=== PATIENT | female | born 1985 | race Caucasian/White ===

== ENCOUNTER 2022-09-27 12:10 | Emergency (ER) | payer MEDICAID ==
[~2022-09-27] VITALS: Ht 175.3 cm; Wt 78.0 kg
[~2022-09-27 12:10] MED LIST: Acetaminophen PO; LINE600T12 PO; OMEP20CA15 PO; Oxycodone Hcl PO
--- NOTE | 2022-09-27 13:10 | NUR ---
PT IS IN ROOM #2A. DR MAIN EVALUATED THE PT.
[2022-09-27] MEDS ORDERED: MEROPENEM 1,000 MG in IV NORMAL SALINE 100 ML IV ONE (13:30)
[2022-09-27] MEDS ORDERED: MEROPENEM 1GM/NS 100ML IVPB **ER PYXIS ONLY IV ONE (14:03)
--- NOTE | 2022-09-27 15:17 | NUR ---
PT WAS D/C'd TO HOME D/C INSTRUCTIONS GIVEN TO THE PT BY DR MAIN.
[2022-09-27 15:18] VITALS: BP 141/68
== END 2022-09-27 15:19 | disposition home or self-care (01) ==
LOC: ER 12:10
DX: M46.32 Infection of intervertebral disc (pyogenic), cervical region (principal); J45.909 Unspecified asthma, uncomplicated; F17.210 Nicotine dependence, cigarettes, uncomplicated; Z79.899 Other long term (current) drug therapy
CPT/HCPCS: 99284; 96365; J2185; A4663

== ENCOUNTER 2022-09-29 18:02 | Emergency (ER) | payer MEDICAID ==
[~2022-09-29] VITALS: Ht 175.3 cm; Wt 78.0 kg
--- NOTE | 2022-09-29 18:10 | NUR ---
seen and examined by
[2022-09-29] MEDS ORDERED: MEROPENEM 1GM/NS 100ML IVPB **ER PYXIS ONLY IV ONE (18:28)
[2022-09-29] MEDS: MEROPENEM 1,000 MG in IV NORMAL SALINE 100 ML IV ONE (18:37)
--- NOTE | 2022-09-29 18:52 | NUR ---
Patient discharged to home in stable condition. Written and verbal after care instructions given. Patient verbalizes understanding of instructions. Stressed follow up or return to ER for worsening s/s.
[2022-09-29 18:55] VITALS: BP 122/78
== END 2022-09-29 18:56 | disposition home or self-care (01) ==
LOC: ER 18:02
DX: T81.49XA Infection following a procedure, other surgical site, initial encounter (principal); J45.909 Unspecified asthma, uncomplicated; F17.210 Nicotine dependence, cigarettes, uncomplicated; Z79.899 Other long term (current) drug therapy
CPT/HCPCS: 99283; 96374; J2185; A4663

== ENCOUNTER 2022-09-30 22:49 | Emergency (ER) | payer MEDICAID ==
[~2022-09-30] VITALS: Ht 175.3 cm; Wt 78.0 kg
--- NOTE | 2022-09-30 23:12 | NUR ---
Pt has RT upper midline where IV meds were administered.
[2022-09-30] MEDS ORDERED: MEROPENEM 1,000 MG in IV NORMAL SALINE 100 ML IV ONE (23:45)
[2022-09-30] MEDS ORDERED: MEROPENEM 1 G VIAL IV ONE (23:56)
--- NOTE | 2022-10-01 00:45 | NUR ---
Patient discharged to home in stable condition. Written and verbal after care instructions given. Patient verbalizes understanding of instructions. Stressed follow up or return to ER for worsening s/s. Patient walked out with steady gait.
[2022-10-01 01:46] VITALS: BP 110/58
== END 2022-10-01 01:20 | disposition home or self-care (01) ==
LOC: ER 22:49
DX: T81.40XA Infection following a procedure, unspecified, initial encounter (principal); J45.909 Unspecified asthma, uncomplicated; F17.210 Nicotine dependence, cigarettes, uncomplicated; Z79.899 Other long term (current) drug therapy
CPT/HCPCS: 99284; 96365; J2185; A4663

== ENCOUNTER 2022-10-02 00:20 | Emergency (ER) | payer MEDICAID ==
[~2022-10-02] VITALS: Ht 175.3 cm; Wt 78.0 kg
[2022-10-02] MEDS ORDERED: MEROPENEM 1,000 MG in IV NORMAL SALINE 100 ML IV ONE (00:45)
[2022-10-02] MEDS ORDERED: MEROPENEM 1GM/NS 100ML IVPB **ER PYXIS ONLY IV ONE (00:48)
[2022-10-02 01:23] VITALS: BP 115/65
== END 2022-10-02 01:23 | disposition home or self-care (01) ==
LOC: ER 00:25
DX: T81.40XA Infection following a procedure, unspecified, initial encounter (principal); J45.909 Unspecified asthma, uncomplicated; F17.210 Nicotine dependence, cigarettes, uncomplicated; Z79.899 Other long term (current) drug therapy
CPT/HCPCS: 99284; 96365; J2185; A4663

== ENCOUNTER 2022-10-04 01:33 | Emergency (ER) | payer MEDICAID ==
[~2022-10-04] VITALS: Ht 175.3 cm; Wt 78.5 kg
[2022-10-04] MEDS ORDERED: MEROPENEM 1GM/NS 100ML IVPB **ER PYXIS ONLY IV ONE (02:05)
[2022-10-04] MEDS: MEROPENEM 1,000 MG in IV NORMAL SALINE 100 ML IV ONE (02:11)
--- NOTE | 2022-10-04 02:58 | NUR ---
Patient discharged to home in stable condition. Written and verbal after care instructions given. Patient verbalizes understanding of instructions. Stressed follow up or return to ER for worsening s/s. Patient is a/ox4, NAD noted, patient ambulated with steady gait.
[2022-10-04 03:13] VITALS: BP 125/74
== END 2022-10-04 03:00 | disposition home or self-care (01) ==
LOC: ER 01:36
DX: T81.40XA Infection following a procedure, unspecified, initial encounter (principal); J45.909 Unspecified asthma, uncomplicated; F17.210 Nicotine dependence, cigarettes, uncomplicated; Z79.899 Other long term (current) drug therapy
CPT/HCPCS: 99284; 96365; J2185; A4663